=== PATIENT | female | born 1990 | race Caucasian/White ===

== ENCOUNTER 2017-11-26 22:11 | Emergency (ER) | payer OTHER ==
[2017-11-26 22:18] VITALS: BP 105/78; PULSE 93; TEMP 98.6; BMI 25.6
--- NOTE | 2017-11-26 22:39 | PDOC ---
History of Present Illness - General Chief Complaint: Respiratory Stated Complaint: COUGH, ALLERGIES X 1 MONTH Time Seen by Provider: 11/26/17 22:23 History Source: Patient Exam Limitations: No Limitations - History of Present Illness Initial Comments: 11/26/17 22:37 This is a 27-year-old female who comes in complaining of seasonal ALLERGY exacerbation. Patient already has Claritin and Benadryl that she is taking in addition that she has an albuterol inhaler that she uses every 4 hours and is taking drops for her eyes. Patient also was recently was started on some antibiotics could she developed a fever with her cough. Patient was on a Z-Adilson. Patient otherwise is complaining of some neuritic pain when coughing but otherwise not when just breathing normally. Patient denies any shortness of breath at this time. PAST MEDICAL HISTORY: no significant history PAST SURGICAL HISTORY: no significant history FAMILY HISTORY: no pertinant history SOCIAL HISTORY: Pt lives with family and is employed. MEDICATIONS: reviewed ALLERGIES: As per nursing notes Review of Systems General: No fevers or chills, no weakness, no weight loss , plus ALLERGIC eyes HEENT: No change in vision. No sore throat,. No ear pain CardioVascular: No chest pain or shortness of breath Respiratory:+ Cough, no wheezing Gastrointestinal: no nausea, vomitting, diarrhea or constipation, No rectal bleeding Genitourinary: No dysuria, hematuria, or frequency Musculoskeletal: No joint or muscle pain or swelling Neurologic: No headache, vertigo, dizziness or loss of consciousness Psychiatric: nor depression Skin: No rashes or easy bruising Endocrine: no increased thirst or abnormal weight change Allergic: no skin or latex allergy All other systems reviewed and normal Exam: General: Well-nourished well-developed individual, no acute distress HEENT: Throat: Normal, tonsils normal, no erythema or exudate Neck: Supple, no meningeal signs, no lymphadenopathy Eyes::Pupils equal reactive and round, extraocular motion intact Chest: Nontender to palpation Cardiac: S1-S2 normal, regular rate and rhythm, no murmurs rubs or gallops Respiratory: Lungs clear to auscultation bilateral Abdomen: Soft, nondistended, normal bowel sounds, nontender to palpation diffusely Extremities: Warm, dry, no cyanosis, clubbing, or edema Skin: No rashes Neuro: Alert and oriented x3, CN II - XII intact, nonfocal exam with normal strength, normal sensation, normal reflexes, normal gait, Psych: Normal mood and affect Assessment and plan: This is a 27-year-old female who comes in complaining of ALLERGIES and cough. Patient already is maximized her treatment with Claritin, Benadryl, albuterol nebulizer treatments every 4 hours and ALLERGY drops for her eyes. There isn't really anything more than I would add to her ALLERGY regiment as she is uncomfortable but not in any acute distress. Past History - Past Medical History Allergies/Adverse Reactions: Allergies Allergy/AdvReac Type Severity Reaction Status Date / Time No Known Allergies Allergy Verified 11/26/17 22:13 Home Medications: Ambulatory Orders NK [No Known Home Medication] 11/26/17 - Immunization History Immunization Up to Date: Yes - Suicide/Smoking/Psychosocial Hx Smoking History: Never smoked Have you smoked in the past 12 months: No Information on smoking cessation initiated: No Hx Alcohol Use: No Drug/Substance Use Hx: No Substance Use Type: None *Physical Exam - Vital Signs Last Vital Signs Temp Pulse Resp BP Pulse Ox 98.6 F 93 H 18 105/78 100 11/26/17 22:14 11/26/17 22:14 11/26/17 22:14 11/26/17 22:14 11/26/17 22:14 *DC/Admit/Observation/Transfer Diagnosis at time of Disposition: Seasonal allergies Qualifiers: Allergic rhinitis trigger: pollen Qualified Code(s): J30.1 - Allergic rhinitis due to pollen - Discharge Dispostion Disposition: HOME Condition at time of disposition: Stable Decision to Admit order: No - Referrals - Patient Instructions Additional Instructions: Continue to use your medications as prescribed including the Claritin and Benadryl albuterol nebs and drops for your eyes. Return to the emergency department immediately with ANY new, persistent or worsening symptoms. Continue any medications as previously prescribed by your physician. You should follow up with your primary doctor as soon as possible regarding today's emergency department visit. . Please make sure your doctor reviews the results of your emergency evaluation. Thank you for coming to the Emergency Department today for your care. It was a pleasure to see you today. Please note that your evaluation is INCOMPLETE until you follow-up with your doctor. - Post Discharge Activity
== END 2017-11-26 22:42 | disposition home or self-care (01) ==
LOC: FER 22:11
DX: J30.1 Allergic rhinitis due to pollen (principal)
CPT/HCPCS: 99281-25